=== PATIENT | male | born 2000 | race Caucasian/White ===

== ENCOUNTER 2021-09-22 10:29 | Inpatient (IN) ==
[2021-09-22 11:11] LABS: Basophils % 0.4 %; Eosinophils # 0.1 K/mcL (0.0-0.6); Eosinophils % 0.8 %; Hematocrit 41.2 % (37.5-50.1); Hemoglobin 13.3 g/dL (12.9-16.9); Immature Granulocytes % 0.4 % (0-4); Lymphocytes # 3.4 K/mcL (0.6-4.6); Mean Corpuscular HGB Conc 32.3 g/dL (31.6-35.5); Mean Corpuscular Hemoglobin 26.8 pg (28.0-33.3); Mean Corpuscular Volume 82.9 fL (83.0-100.0); Mean Platelet Volume 9.9 fL (9.4-12.4); Monocytes # 0.5 K/mcL (0.0-1.3); Monocytes % 4.5 %; Neutrophils # 6.1 K/mcL (1.6-8.9); Platelet Count 481 K/mcL (140-400); Red Blood Count 4.97 M/mcL (4.19-5.50); Red Cell Distribution Width 15.3 % (11.5-14.5); Segmented Neutrophils % 59.9 %; White Blood Count 10.1 K/mcL (4.3-11.1)
[2021-09-22 11:20] LABS: Bilirubin,Urine Negative (Negative); Blood,Urine Negative (Negative); Clarity,Urine Ex.Turbid (Clear); Color,Urine Yellow (Yellow); Glucose,Urine (UA) Normal (Normal); Ketones,Urine 10 mg/dL (Negative); Leukocyte Esterase,Urine Negative (Negative); Nitrite,Urine Negative (Negative); PH,Urine 6.5 pH Units (5.0-8.0); Protein,Urine 30 mg/dL (Neg-Trace); Specific Gravity,Urine 1.029 (1.010-1.025); Urobilinogen,Urine Normal (Normal)
[2021-09-22 11:30] LABS: Amorphous Sediment,Urine Many per hpf (None-Few)
[2021-09-22 11:31] LABS: Acetaminophen < 10 mcg/mL (10-20); Alanine Aminotransferase 18 Units/L (7-52); Albumin 4.5 g/dL (3.5-5.7); Albumin/Globulin Ratio 1.3 (1.1-2.2); Alkaline Phosphatase 100 Units/L (34-104); Aspartate Amino Transferase 17 Units/L (13-39); BUN/Creatinine Ratio 13 (6-26); Bacteria,Urine Few per hpf (None-Few); Bilirubin,Direct 0.1 mg/dL (0.0-0.2); Bilirubin,Indirect 0.7 mg/dL (0.0-1.0); Bilirubin,Total 0.8 mg/dL (0.3-1.0); Blood Urea Nitrogen 12 mg/dL (6-20); Calcium 9.3 mg/dL (8.6-10.3); Carbon Dioxide 23 mEq/L (23-29); Chloride 105 mEq/L (98-107); Chol/HDL Ratio 6.5 (0-4.9); Cholesterol 162 mg/dL (< 200); Ethanol < 10 mg/dL (Less than 10); Globulin 3.4 g/dL (2.4-3.5); Glucose 80 mg/dL (70-105); HDL Cholesterol 25 mg/dL (40-59); LDL Cholesterol,Calculated 113 mg/dL (< 100); Osmolality,Calculated 283 (280-300); Potassium 3.3 mEq/L (3.5-5.1); RBC,Urine 0-3 per hpf (0-3); Salicylate < 2.5 mg/dL (15.0-30.0); Sodium 137 mEq/L (136-145); Squamous Epithelial Cell,Urine Few per hpf (None-Few); Total Protein 7.9 g/dL (6.4-8.9); Triglycerides 118 mg/dL (< 150); WBC,Urine 0-3 per hpf (0-3); eGFR For African Americans > 60 (> 60); eGFR For Non-African Americans > 60 (> 60)
[2021-09-22 11:43] LABS: Amphetamine Screen,Urine Negative ng/mL (Cutoff=1000); Barbiturate Screen,Urine Negative ng/mL (Cutoff=200); Benzodiazepines Screen,Urine Negative ng/mL (Cutoff=200); Cannabinoid Screen,Urine Negative ng/mL (Cutoff = 50); Cocaine Screen,Urine Negative ng/mL (Cutoff= 300); Estimated Average Glucose 103 mg/dl; Hemoglobin A1C 5.2 %; Opiate Screen,Urine Negative ng/mL (Cutoff=300); Phencyclidine Screen,Urine Negative ng/mL (Cutoff=25)
[2021-09-22 16:14] LABS: Influenza A PCR Negative (Negative); Influenza B PCR Negative (Negative); Resp. Syncytial Virus PCR Negative (Negative)
[2021-09-22 16:15] LABS: SARS-CoV-2 by PCR (In House) Negative (Negative)
[2021-09-22] MEDS ORDERED: traZODone 50 MG TABLET PO PRN (17:06)
[2021-09-22] MEDS ORDERED: *HR* LORazepam 2 MG/ML VIAL IM PRN (17:06)
[2021-09-22] MEDS ORDERED: *HR* LORazepam 1 MG TABLET PO PRN (17:06)
[2021-09-22] MEDS ORDERED: hydrOXYzine pamoate 25 MG CAPSULE PO PRN (17:06)
[2021-09-22] MEDS ORDERED: Haloperidol Lactate 5 MG/ML VIAL IM PRN (17:06)
[2021-09-22] MEDS ORDERED: Ibuprofen 400 MG TABLET PO PRN (17:06)
[2021-09-22] MEDS ORDERED: haloperidoL 5 MG TABLET PO PRN (17:06)
[2021-09-22] MEDS ORDERED: clonazePAM 0.5 MG TABLET PO PRN (17:09)
[2021-09-22] MEDS: FLUoxetine 20 MG CAPSULE PO SCH (21:42)
[2021-09-23] MEDS: Topiramate 25 MG TABLET PO SCH (10:00)
[2021-09-23] MEDS: FLUoxetine 20 MG CAPSULE PO SCH (10:00)
[2021-09-23] MEDS ORDERED: SUMAtriptan succinate 25 MG TABLET PO PRN (12:15)
[2021-09-23] MEDS ORDERED: FLUoxetine 20 MG CAPSULE PO ONE (12:15)
[2021-09-23] MEDS ORDERED: SUMAtriptan succinate 50 MG TABLET PO PRN (12:52)
[2021-09-23] MEDS: ARIPiprazole 2 MG TABLET PO SCH (21:23)
[2021-09-24] MEDS: FLUoxetine 20 MG CAPSULE PO SCH (08:30)
[2021-09-24] MEDS: Topiramate 25 MG TABLET PO SCH (08:30)
[2021-09-24] MEDS: clonazePAM 1 MG TABLET PO PRN (11:17)
[2021-09-24] MEDS: ARIPiprazole 2 MG TABLET PO SCH (21:22)
[2021-09-25] MEDS: Topiramate 25 MG TABLET PO SCH (08:35)
[2021-09-25] MEDS: FLUoxetine 20 MG CAPSULE PO SCH (08:36)
[2021-09-25 09:50] VITALS: BP 129/87; PULSE 68; TEMP 97.7; O2SAT 100
[2021-09-25] MEDS: clonazePAM 1 MG TABLET PO PRN (10:58)
== END 2021-09-25 13:33 | disposition home or self-care (01) | DRG 885 ==
LOC: EMEROOARM 10:29 → 1ANU 16:34 → SUATTDRO 16:34 → 1ANU 17:15
PROVIDERS: ADMIT Psychiatry & Neurology Psychiatry; ATTEND Psychiatry & Neurology Forensic Psychiatry

== ENCOUNTER 2021-10-16 02:44 | Inpatient (IN) ==
[2021-10-16 04:13] LABS: Basophils % 0.4 %; Eosinophils # 0.1 K/mcL (0.0-0.6); Eosinophils % 0.8 %; Hemoglobin 12.8 g/dL (12.9-16.9); Immature Granulocytes % 0.1 % (0-4); Lymphocytes # 3.3 K/mcL (0.6-4.6); Lymphocytes % 33.2 %; Mean Corpuscular HGB Conc 31.2 g/dL (31.6-35.5); Mean Corpuscular Hemoglobin 26.5 pg (28.0-33.3); Mean Corpuscular Volume 84.9 fL (83.0-100.0); Mean Platelet Volume 10.6 fL (9.4-12.4); Monocytes # 0.5 K/mcL (0.0-1.3); Monocytes % 5.3 %; Platelet Count 414 K/mcL (140-400); Red Blood Count 4.83 M/mcL (4.19-5.50); Red Cell Distribution Width 15.5 % (11.5-14.5); Segmented Neutrophils % 60.2 %; White Blood Count 9.9 K/mcL (4.3-11.1)
[2021-10-16 04:18] LABS: Bacteria,Urine Moderate per hpf (None-Few); Bilirubin,Urine Negative (Negative); Blood,Urine Negative (Negative); Clarity,Urine Turbid (Clear); Color,Urine Yellow (Yellow); Glucose,Urine (UA) Normal (Normal); Ketones,Urine Negative (Negative); Leukocyte Esterase,Urine Negative (Negative); Mucus,Urine Many per lpf (None-Few); Nitrite,Urine Negative (Negative); PH,Urine 7.5 pH Units (5.0-8.0); Protein,Urine 50 mg/dL (Neg-Trace); Specific Gravity,Urine > 1.030 (1.010-1.025); Squamous Epithelial Cell,Urine Few per hpf (None-Few); WBC,Urine 0-3 per hpf (0-3)
[2021-10-16 04:22] LABS: Amphetamine Screen,Urine Negative ng/mL (Cutoff=1000); Barbiturate Screen,Urine Negative ng/mL (Cutoff=200); Benzodiazepines Screen,Urine Negative ng/mL (Cutoff=200); Cannabinoid Screen,Urine Positive ng/mL (Cutoff = 50); Cocaine Screen,Urine Negative ng/mL (Cutoff= 300); Opiate Screen,Urine Negative ng/mL (Cutoff=300); Phencyclidine Screen,Urine Negative ng/mL (Cutoff=25)
[2021-10-16 04:33] LABS: Acetaminophen < 10 mcg/mL (10-20); BUN/Creatinine Ratio 14 (6-26); Blood Urea Nitrogen 13 mg/dL (6-20); Calcium 9.2 mg/dL (8.6-10.3); Carbon Dioxide 23 mEq/L (23-29); Chloride 107 mEq/L (98-107); Ethanol < 10 mg/dL (Less than 10); Glucose 79 mg/dL (70-105); Osmolality,Calculated 283 (280-300); Potassium 3.6 mEq/L (3.5-5.1); Salicylate < 2.5 mg/dL (15.0-30.0); Sodium 137 mEq/L (136-145); eGFR For African Americans > 60 (> 60); eGFR For Non-African Americans > 60 (> 60)
[2021-10-16 05:04] LABS: Influenza A PCR Negative (Negative); Influenza B PCR Negative (Negative); Resp. Syncytial Virus PCR Negative (Negative)
[2021-10-16 05:05] LABS: SARS-CoV-2 by PCR (In House) Negative (Negative)
[2021-10-16] MEDS ORDERED: hydrOXYzine pamoate 25 MG CAPSULE PO PRN (12:32)
[2021-10-16] MEDS ORDERED: *HR* LORazepam 1 MG TABLET PO PRN (12:32)
[2021-10-16] MEDS ORDERED: MOM Conc 10 ML UD.LIQ PO PRN (12:32)
[2021-10-16] MEDS ORDERED: haloperidoL 5 MG TABLET PO PRN (12:32)
[2021-10-16] MEDS ORDERED: Acetaminophen 325 MG TABLET PO PRN (12:32)
[2021-10-16] MEDS ORDERED: Ibuprofen 400 MG TABLET PO PRN (12:32)
[2021-10-16] MEDS ORDERED: *HR* LORazepam 2 MG/ML VIAL IM PRN (12:32)
[2021-10-16] MEDS ORDERED: Mag Hydrox/Al Hydrox/Simeth 30 ML UDC PO PRN (12:32)
[2021-10-16] MEDS ORDERED: traZODone 50 MG TABLET PO PRN (12:32)
[2021-10-16] MEDS ORDERED: Haloperidol Lactate 5 MG/ML VIAL IM PRN (12:32)
[2021-10-16] MEDS ORDERED: SUMAtriptan succinate 50 MG TABLET PO PRN (12:34)
[2021-10-16] MEDS: clonazePAM 1 MG TABLET PO PRN (17:21)
[2021-10-16] MEDS: ARIPiprazole 2 MG TABLET PO SCH (21:11)
[2021-10-17] MEDS: Vitamin B Complex/Vit C/Vit E 1 EACH TABLET PO SCH (08:06)
[2021-10-17] MEDS: Topiramate 25 MG TABLET PO SCH (08:06)
[2021-10-17] MEDS: Cholecalciferol (D-3) 1,000 UNIT (25MCG) TABLET PO SCH (08:06)
[2021-10-17] MEDS ORDERED: FLUoxetine 20 MG CAPSULE PO SCH (09:00)
[2021-10-17] MEDS: clonazePAM 1 MG TABLET PO PRN (16:00)
[2021-10-17] MEDS: ARIPiprazole 2 MG TABLET PO SCH (20:18)
[2021-10-18 09:08] VITALS: BP 128/86; PULSE 65; TEMP 98.2; O2SAT 99
[2021-10-18] MEDS: Cholecalciferol (D-3) 1,000 UNIT (25MCG) TABLET PO SCH (09:28)
[2021-10-18] MEDS: Topiramate 25 MG TABLET PO SCH (09:28)
[2021-10-18] MEDS: Vitamin B Complex/Vit C/Vit E 1 EACH TABLET PO SCH (09:28)
== END 2021-10-18 16:40 | disposition home or self-care (01) | DRG 885 ==
LOC: EMEROOARM 02:44 → 1ANU 11:52
PROVIDERS: ADMIT Psychiatry & Neurology Forensic Psychiatry; ATTEND Psychiatry & Neurology Forensic Psychiatry